=== PATIENT | female | born 1990 | race American Indian/Alaskan Native ===

== ENCOUNTER 2016-11-17 21:03 | Emergency (ER) | payer SELFPAY ==
[2016-11-17 21:46] VITALS: BP 124/84; PULSE 84; RESP 14; TEMP 97.9; O2SAT 98
== END 2016-11-17 21:48 | disposition left against medical advice (07) ==
LOC: C.ER 21:03
DX: N64.4 Mastodynia (principal); Z02.9 Encounter for administrative examinations, unspecified